=== PATIENT | female | born 1940 | race American Indian/Alaskan Native ===

== ENCOUNTER 2016-11-29 15:31 | Emergency (ER) | payer MEDICARE, OTHER ==
--- NOTE | 2016-11-29 16:10 | EDM.PDOC ---
ED HPI ENT - General Stated Complaint: [id number] SICK BAD COLD SENT FROM [facility] CT OF HEAD Time Seen by Provider: 11/29/16 15:58 Source of Information: Reports: Patient History Limitations: Reports: No limitations - History of Present Illness INITIAL COMMENTS - FREE TEXT/NARRATIVE: This 76 yo female patient was sent to the ED from [facility] due to pain behind her right ear, swelling in the same area and a history of a sinus infection not improving on Augmentin. The patient reports she started to have symptoms in October and has been seen in the [facility] 2 times ( including today). The patient has taken a full course of antibiotics. The patient returned to the [facility] today. No labs or x-rays were done, but the patient was sent to the emergency department for an assessment, lab and possibly a CT of her head. The patient reports she has been getting very tired at the end of the day and has had some intermittent dizziness. The patient report she is feeling a little better after the Augmentin, but not back to her normal. Timing/Duration: Reports: Week(s): (8), Constant Severity: moderate Location: Reports: right Ear Quality: Reports: Ache, Dull Improves with: Reports: None Worsens with: Reports: Other (palpation) Associated Symptoms: Reports: no other symptoms - Related Data Allergies/ADRs: Allergies Allergy/AdvReac Type Severity Reaction Status Date / Time Dairy Products Allergy Other Verified 11/29/16 15:46 pseudoephedrine Allergy Other Verified 11/29/16 15:46 Home Meds: Home Meds Aspirin [Halfprin] 81 mg PO DAILY 11/29/16 [History] Calcium Citrate/Vitamin D3 [Calcium Citrate + D] 1 tab PO BID 11/29/16 [History] Magnesium Oxide 1 tab PO DAILY 11/29/16 [History] Meclizine [Antivert] 1 tab PO TID 11/29/16 [History] Multivitamin [Multivitamins] 1 tab PO DAILY 11/29/16 [History] Ranitidine [Zantac] 1 tab PO BID 11/29/16 [History] amLODIPine [Norvasc] 5 mg PO DAILY 11/29/16 [History] Social & Family History - Tobacco Use Smoking Status *Q: Former Smoker Years of Tobacco use: 57 Packs/Tins Daily: 1 Used Tobacco, but Quit: Yes Month Tobacco Last Used: oct 2016 - Recreational Drug Use Recreational Drug Use: No ED ROS ENT - Review of Systems Review Of Systems: ROS reveals no pertinent complaints other than HPI. ED EXAM, ENT - Physical Exam Exam: See Below Exam Limited By: No limitations General Appearance: alert, WD/WN, mild distress Eye Exam: bilateral eye: EOMI, normal inspection, PERRL Ears: normal external exam, normal canal, hearing grossly normal, normal TMs Nose: normal inspection, normal mucousa, no blood Mouth/Throat: Normal inspection, Normal gums, Normal lips, Normal oropharynx, Normal teeth Head: scalp tenderness (behind right ear) Neck: normal inspection, supple, non-tender, full range of motion Respiratory/Chest: no respiratory distress, lungs clear, normal breath sounds, no accessory muscle use, chest non-tender Cardiovascular: normal peripheral pulses, regular rate, rhythm, no edema, no gallop, no JVD, no murmur, no rub GI/Abdominal: normal bowel sounds, soft, non tender, no organomegaly, no distention, no abnormal bruit, no mass (Female) Exam: Deferred Rectal (Female) Exam: Deferred Back: normal inspection, full range of motion Extremities: normal inspection, normal range of motion, non-tender, no pedal edema, normal capillary refill Neurological: alert, oriented, CN II-XII intact, normal cognition, normal gait, normal reflexes, no motor/sensory deficits Psychiatric: normal affect, normal mood Skin: Warm, Dry, Intact, Normal color, No rash Lymphatic: no adenopathy Course - Vital Signs Last Recorded V/S: Last Vital Signs Temp 35.8 C 11/29/16 15:45 Pulse 84 11/29/16 15:45 Resp 18 11/29/16 15:45 BP 136/75 11/29/16 15:45 Pulse Ox 94 L 11/29/16 15:45 - Orders/Labs/Meds Orders: Active Orders 24 hr Category Date Time Status CULTURE BLOOD [BC] Stat Lab 11/29/16 15:53 Received CULTURE BLOOD [BC] Stat Lab 11/29/16 15:55 Received Blood Culture x2 Reflex Set [OM.PC] Stat Oth 11/29/16 15:43 Ordered Labs: Laboratory Tests 11/29/16 11/29/16 11/29/16 Range/Units 15:53 15:55 15:55 WBC 7.7 (5.0-10.0) 10^3/uL RBC 4.13 L (4.2-5.4) 10^6/uL Hgb 12.0 (12.0-16.0) g/dL Hct 37.1 (37.0-47.0) % MCV 89.8 (80-100) fL MCH 29.1 (27.0-34.0) pg MCHC 32.3 L (33.0-35.0) g/dL Plt Count 289 (150-450) 10^3/uL Neut % (Auto) 73.3 (42.2-75.2) % Lymph % (Auto) 15.9 L (20.5-50.1) % [place] % (Auto) 10.1 H (2-8) % Eos % (Auto) 0.4 L (1.0-3.0) % Baso % (Auto) 0.3 (0.0-1.0) % Sodium 138 (135-145) mmol/L Potassium 3.7 (3.6-5.0) mmol/L Chloride 99 L (101-111) mmol/L Carbon Dioxide 28.0 (21.0-31.0) mmol/L Anion Gap 14.7 BUN 13 (7-18) mg/dL Creatinine 0.5 L (0.6-1.3) mg/dL Est Cr Clr Drug Dosing 70.60 mL/min Estimated GFR (MDRD) > 60 BUN/Creatinine Ratio 26.00 Glucose 99 (74-105) mg/dL Lactic Acid 0.9 (0.5-2.2) mmol/L Calcium 9.6 (8.4-10.2) mg/dl Total Bilirubin 0.5 (0.2-1.0) mg/dL AST 19 (10-42) IU/L ALT 12 (10-60) IU/L Alkaline Phosphatase 63 (42-121) IU/L Total Protein 8.0 (6.7-8.2) g/dl Albumin 3.9 (3.2-5.5) g/dl Globulin 4.1 Albumin/Globulin Ratio 0.95 Meds: Medications Discontinued Medications Generic Name Dose Route Start Last Admin Trade Name Freq PRN Reason Stop Dose Admin Iopamidol 75 ml 11/29/16 16:33 11/29/16 17:02 Isovue-300 (61%) IVPUSH 11/29/16 16:34 75 ml ONETIME ONE Administration - Re-Assessments/Exams Free Text/Narrative Re-Assessment/Exam: 11/29/16 18:08 Discussed the examination, history, prior treatments, lab and CT results with Dr. Castillo (Neurosurgery). Dr. Castillo advised to schedule an MRI with and without contrast for the patient in the morning and he will see the patient in the afternoon tomorrow afternoon. Departure - Departure Time of Disposition: 18:27 Disposition: Home, Self-Care 01 Condition: fair Clinical Impression: Brain mass Care Plan Goals: The patient and family were advised of the examination, lab, CT and consult results during the visit. The patient was scheduled to have an MRI with and without contrast here at [facility] tomorrow morning at 0800. The patient was advised to avoid eating or drinking for 4 hours prior to her appointment. After the MRI has been completed, the MRI will be sent electronically to Dr. Castillo. The patient will then travel to [facility] for an appointment with Dr. Castillo (Neurosurgery) in the afternoon for continued evaluation and further treatment. If the patient has any additional symptoms or concerns, the patient should return to the emergency department. - My Orders Last 24 Hours: My Active Orders 11/29/16 15:43 Blood Culture x2 Reflex Set [OM.PC] Stat 11/29/16 15:53 CULTURE BLOOD [BC] Stat 11/29/16 15:55 CULTURE BLOOD [BC] Stat - Assessment/Plan Last 24 Hours: My Active Orders 11/29/16 15:43 Blood Culture x2 Reflex Set [OM.PC] Stat 11/29/16 15:53 CULTURE BLOOD [BC] Stat 11/29/16 15:55 CULTURE BLOOD [BC] Stat
[2016-11-29 16:14] VITALS: BP 136/75
[2016-11-29 16:23] LABS: CHLORIDE,CL 99 mmol/L (101-111); SODIUM,NA 138 mmol/L (135-145)
[2016-11-29] MEDS ORDERED: Iopamidol 612 MG/ML 75 ML Bottle IVPUSH ONE (16:33)
--- NOTE | 2016-11-29 17:49 | CT ---
Clinical history: 76-year-old afebrile female recently finished course of Augmentin for "sinusitis" complaining of dizzy spells and "lump" behind the right ear. Normal white blood cell count. Scan technique: Volume acquisition of data facial scan including salivary glands and paranasal/masto id sinuses obtained during intravenous administration 75 cc nonionic Isovue contrast with patient ly ing supine on the Siemens multi slice CT scanner [place], [place]. Al l data archived in the PAC system for storage, reformatting and study. (Delayed CT images of the hea d) Interpretation: Abnormal. 1. *Large, 4 cm diameter, mixed density vascular mass lesion in the posterior fossa.... cerebellum, left of midline. No ventricular dilatation or hydrocephalus. 2. 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 3. Mucoperiosteal inflammatory changes maxillary sinuses (large retention cysts on the right). 4. No soft tissue "lump" or mass behind the ears. 5. Relatively larger parotid gland on the right but no sign of sialolith, parotid duct dilatation, o r abnormal vascular enhancement i.e. no indication parotid gland tumor or parotiditis. 6. No foreign body. Normal submandibular glands. 7. Scattered intracranial microvascular ischemic changes of the white matter both cerebral hemispher es. No supratentorial mass lesion. No sign of acute intracranial hemorrhage. CONCLUSION: Large posterior fossa mass lesion (medulloblastoma?). Maxillary sinusitis.
--- NOTE | 2016-11-29 17:50 | CT ---
Clinical history: 76-year-old female complaining of dizziness. CONCLUSION: Abnormal large posterior fossa mass lesion (see report facial CT scan, today).
== END 2016-11-29 18:50 | disposition home or self-care (01) ==
LOC: DL.ED 15:31
DX: G93.89 Other specified disorders of brain (principal); Z88.8 Allergy status to other drugs, medicaments and biological substances; Z87.891 Personal history of nicotine dependence
CPT/HCPCS: 36415; 70450; 70487; 80053; 83605; 85025; 87040; 99284; Q9967

== ENCOUNTER 2017-04-26 14:56 | Emergency (ER) | payer MEDICARE, OTHER ==
[2017-04-26] MEDS ORDERED: Albuterol/Ipratropium 3.0-0.5 MG/3 ML Neb Soln NEB ONE (15:20)
--- NOTE | 2017-04-26 15:27 | EDM.PDOC ---
ED HPI GENERAL MEDICAL PROBLEM - General Chief Complaint: Respiratory Problem Stated Complaint: BINH [id number] Time Seen by Provider: 04/26/17 15:15 Source of Information: Reports: Patient History Limitations: Reports: No Limitations - History of Present Illness INITIAL COMMENTS - FREE TEXT/NARRATIVE: This 77 yo female patient reports to the ED from the [facility] with increased shortness of breath over the past 2 days. The patient reports she was at the clinic today getting a chemo treatment (for a tumor in the back of her head) when the nursing staff noticed that she was having increased shortness of breath. The patient reports she was doing very well until yesterday, when she started to have increased shortness of breath. The patient reports she has noticed difficulties getting air into her chest. The patient also reports a non- productive cough. The patient reports she had smoked for years, but quit this year. The patient reports no history of CHF, bronchitis or COPD. Onset: Sudden Onset Date: 04/25/17 Duration: Constant, Getting Worse Location: Reports: Chest Quality: Reports: Pressure Severity: Moderate Improves with: Reports: None Worsens with: Reports: None Context: Reports: Other Associated Symptoms: Reports: Cough, Shortness of Breath - Related Data Allergies Allergy/AdvReac Type Severity Reaction Status Date / Time Dairy Products Allergy Other Verified 04/26/17 14:59 pseudoephedrine Allergy Other Verified 04/26/17 14:59 Home Meds: Home Meds Calcium Citrate/Vitamin D3 [Calcium Citrate + D] 1 tab PO BID 11/29/16 [History] Magnesium Oxide 1 tab PO DAILY 11/29/16 [History] Multivitamin [Multivitamins] 1 tab PO DAILY 11/29/16 [History] Ranitidine [Zantac] 1 tab PO BID 11/29/16 [History] amLODIPine [Norvasc] 5 mg PO DAILY 11/29/16 [History] Aspirin 81 mg PO BRK 04/26/17 [History] Loratadine 10 mg PO PRN 04/26/17 [History] Ondansetron [Zofran Odt] 8 mg PO Q8HR PRN 04/26/17 [History] Past Medical History HEENT History: Reports: Cataract Cardiovascular History: Reports: Hypertension Respiratory History: Reports: Other (See Below) Other Respiratory History: 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 Gastrointestinal History: Reports: GERD, Other (See Below) Other Gastrointestinal History: Lactose intolerance Genitourinary History: Reports: None [employer] History: Reports: Other (See Below) Other OB/BYN History: Tubal ligation at age 52 Musculoskeletal History: Reports: None Neurological History: Reports: None Psychiatric History: Reports: None Endocrine/Metabolic History: Reports: None Hematologic History: Reports: Anemia Immunologic History: Reports: None Oncologic (Cancer) History: Reports: Brain, Lung, Other (See Below) Other Oncologic History: Pt currently on Chemo Dermatologic History: Reports: None - Infectious Disease History Infectious Disease History: Reports: Chicken Pox, Measles, Mumps - Past Surgical History Cardiovascular Surgical History: Reports: None Respiratory Surgical History: Reports: None Female Surgical History: Reports: None Musculoskeletal Surgical History: Reports: None Social & Family History - Family History Family Medical History: Noncontributory HEENT: Reports: Glaucoma Cardiac: Reports: Heart Failure Endocrine/Metabolic: Reports: Diabetes, type II Immunologic: Reports: None Oncologic: Reports: Breast, Uterine - Tobacco Use Smoking Status *Q: Former Smoker Years of Tobacco use: 58 Packs/Tins Daily: 0.2 Used Tobacco, but Quit: Yes Month Tobacco Last Used: ? Second Hand Smoke Exposure: Yes - Caffeine Use Caffeine Use: Reports: Coffee - Recreational Drug Use Recreational Drug Use: No ED ROS GENERAL - Review of Systems Review Of Systems: ROS reveals no pertinent complaints other than HPI. ED EXAM, GENERAL - Physical Exam Exam: See Below Exam Limited By: No Limitations General Appearance: Alert, WD/WN, No Apparent Distress Eye Exam: Bilateral Eye: EOMI, Normal Inspection, PERRL Ears: Normal External Exam, Normal Canal, Hearing Grossly Normal, Normal TMs Nose: Normal Inspection, Normal Mucosa, No Blood Throat/Mouth: Normal Inspection, Normal Lips, Normal Teeth, Normal Gums, Normal Oropharynx, Normal Voice, No Airway Compromise Head: Atraumatic, Normocephalic Neck: Normal Inspection, Supple, Non-Tender, Full Range of Motion Respiratory/Chest: Decreased Breath Sounds, Rhonchi, Wheezing Cardiovascular: Normal Peripheral Pulses, No Edema, No Gallop, No JVD, No Murmur , No Rub, Tachycardia, Extra Beats GI/Abdominal: Normal Bowel Sounds, Soft, Non-Tender, No Organomegaly, No Distention, No Abnormal Bruit, No Mass (Female) Exam: Deferred Rectal (Female) Exam: Deferred Extremities: Normal Inspection, Normal Range of Motion, Non-Tender, Normal Capillary Refill, No Pedal Edema Neurological: Alert, Oriented, CN II-XII Intact, Normal Cognition, Normal Gait, Normal Reflexes, No Motor/Sensory Deficits Psychiatric: Normal Affect, Normal Mood Skin Exam: Warm, Dry, Intact, Normal Color, No Rash Lymphatic: No Adenopathy Course - Vital Signs Last Recorded V/S: Last Vital Signs Temp 36.0 C 04/26/17 16:18 Pulse 96 04/26/17 16:18 Resp 22 H 04/26/17 16:18 BP 123/70 04/26/17 16:18 Pulse Ox 88 L 04/26/17 15:14 - Orders/Labs/Meds Orders: Active Orders 24 hr Category Date Time Status EKG Documentation Completion [RC] URGENT Care 04/26/17 15:15 Active RT Aerosol Therapy [RC] ASDIRECTED Care 04/26/17 15:20 Active Chest 2V [CR] Urgent Exams 04/26/17 15:15 Taken CULTURE BLOOD [BC] Stat Lab 04/26/17 14:27 Received CULTURE BLOOD [BC] Stat Lab 04/26/17 15:31 Received Piperacillin/Tazobactam [Zosyn] 3.375 gm Med 04/26/17 16:17 Ordered Sodium Chloride 0.9% [Normal Saline] 100 ml IV ONETIME Blood Culture x2 Reflex Set [OM.PC] Stat Oth 04/26/17 15:15 Ordered Medication Orders Piperacillin Sod/Tazobactam (Sod 3.375 gm/ Sodium Chloride) 100 mls @ 200 mls/ hr IV ONETIME ONE Stop: 04/26/17 16:46 Labs: Laboratory Tests 04/26/17 04/26/17 04/26/17 Range/Units 14:27 14:27 14:27 WBC 15.1 H (5.0-10.0) 10^3/uL RBC 2.99 L (4.2-5.4) 10^6/uL Hgb 9.4 L (12.0-16.0) g/dL Hct 29.3 L (37.0-47.0) % MCV 98.0 (80-100) fL MCH 31.4 (27.0-34.0) pg MCHC 32.1 L (33.0-35.0) g/dL Plt Count 182 (150-450) 10^3/uL Neut % (Auto) 94.7 H (42.2-75.2) % Lymph % (Auto) 2.8 L (20.5-50.1) % [place] % (Auto) 2.3 (2-8) % Eos % (Auto) 0.1 L (1.0-3.0) % Baso % (Auto) 0.1 (0.0-1.0) % Sodium (135-145) mmol/L Potassium (3.6-5.0) mmol/L Chloride (101-111) mmol/L Carbon Dioxide (21.0-31.0) mmol/L Anion Gap BUN (7-18) mg/dL Creatinine (0.6-1.3) mg/dL Est Cr Clr Drug Dosing mL/min Estimated GFR (MDRD) BUN/Creatinine Ratio Glucose (74-105) mg/dL Lactic Acid 1.0 (0.5-2.2) mmol/L Calcium (8.4-10.2) mg/dl Total Bilirubin (0.2-1.0) mg/dL AST (10-42) IU/L ALT (10-60) IU/L Alkaline Phosphatase (42-121) IU/L Troponin I (0.00-0.02) ng/ml B-Natriuretic Peptide 1070 H (0-100) pg/ml Total Protein (6.7-8.2) g/dl Albumin (3.2-5.5) g/dl Globulin Albumin/Globulin Ratio Urine Color (YELLOW) Urine Appearance (CLEAR) Urine pH (5.0-9.0) Ur Specific [place] (1.005-1.030) Urine Protein (NEGATIVE) Urine Glucose (UA) (NEGATIVE) Urine Ketones (NEGATIVE) Urine Occult Blood (NEGATIVE) Urine Nitrite (NEGATIVE) Urine Bilirubin (NEGATIVE) Urine Urobilinogen (0.2-1.0) mg/dL Ur Leukocyte Esterase (NEGATIVE) Urine RBC /HPF Urine WBC (0-5/HPF) /HPF Ur Epithelial Cells /HPF Urine Bacteria (0-FEW/HPF) /HPF Urine Mucus /LPF 04/26/17 04/26/17 Range/Units 14:27 15:30 WBC (5.0-10.0) 10^3/uL RBC (4.2-5.4) 10^6/uL Hgb (12.0-16.0) g/dL Hct (37.0-47.0) % MCV (80-100) fL MCH (27.0-34.0) pg MCHC (33.0-35.0) g/dL Plt Count (150-450) 10^3/uL Neut % (Auto) (42.2-75.2) % Lymph % (Auto) (20.5-50.1) % [place] % (Auto) (2-8) % Eos % (Auto) (1.0-3.0) % Baso % (Auto) (0.0-1.0) % Sodium 140 (135-145) mmol/L Potassium 3.3 L (3.6-5.0) mmol/L Chloride 108 (101-111) mmol/L Carbon Dioxide 21.0 (21.0-31.0) mmol/L Anion Gap 14.3 BUN 19 H (7-18) mg/dL Creatinine 0.5 L (0.6-1.3) mg/dL Est Cr Clr Drug Dosing 71.10 mL/min Estimated GFR (MDRD) > 60 BUN/Creatinine Ratio 38.00 Glucose 142 H (74-105) mg/dL Lactic Acid (0.5-2.2) mmol/L Calcium 8.7 (8.4-10.2) mg/dl Total Bilirubin 0.7 (0.2-1.0) mg/dL AST 45 H (10-42) IU/L ALT 48 (10-60) IU/L Alkaline Phosphatase 58 (42-121) IU/L Troponin I 0.14 H* (0.00-0.02) ng/ml B-Natriuretic Peptide (0-100) pg/ml Total Protein 6.7 (6.7-8.2) g/dl Albumin 3.9 (3.2-5.5) g/dl Globulin 2.8 Albumin/Globulin Ratio 1.39 Urine Color Yellow (YELLOW) Urine Appearance Slightly cloudy (CLEAR) Urine pH 6.0 (5.0-9.0) Ur Specific [place] 1.015 (1.005-1.030) Urine Protein 30 H (NEGATIVE) Urine Glucose (UA) Negative (NEGATIVE) Urine Ketones Negative (NEGATIVE) Urine Occult Blood Moderate H (NEGATIVE) Urine Nitrite Negative (NEGATIVE) Urine Bilirubin Negative (NEGATIVE) Urine Urobilinogen 0.2 (0.2-1.0) mg/dL Ur Leukocyte Esterase Moderate H (NEGATIVE) Urine RBC 10-20 H /HPF Urine WBC 20-30 H (0-5/HPF) /HPF Ur Epithelial Cells Few /HPF Urine Bacteria Few (0-FEW/HPF) /HPF Urine Mucus Few H /LPF Meds: Medications Generic Name Dose Route Start Last Admin Trade Name Freq PRN Reason Stop Dose Admin Piperacillin Sod/Tazobactam 100 mls @ 200 mls/hr 04/26/17 16:17 Sod 3.375 gm/ Sodium Chloride IV 04/26/17 16:46 ONETIME ONE Discontinued Medications Generic Name Dose Route Start Last Admin Trade Name Freq PRN Reason Stop Dose Admin Albuterol/Ipratropium 3 ml 04/26/17 15:20 04/26/17 15:27 Duoneb 3.0-0.5 Mg/3 Ml NEB 04/26/17 15:21 3 ml ONETIME ONE Administration Aspirin 324 mg 04/26/17 16:06 04/26/17 16:11 Aspirin PO 04/26/17 16:07 324 mg ONETIME ONE Administration Departure - Departure Time of Disposition: 16:24 Disposition: DC/Tfer to Acute Hospital 02 Condition: Serious Clinical Impression: Bronchitis, Elevated troponin I level CHF (congestive heart failure) Qualifiers: Congestive heart failure type: unspecified congestive heart failure type Congestive heart failure chronicity: acute Qualified Code(s): I50.9 - Heart failure, unspecified - Discharge Information Forms: Interfacility Transfer EMTALA Care Plan Goals: Discussed the history, examination, lab, x-ray, and EKG results with Dr. Almaraz ( Hospitalist with in [place]). Dr. Almaraz accepted the patient for continued evaluation and further management. The patient will be transported by [facility]. - My Orders Last 24 Hours: My Active Orders 04/26/17 14:27 CULTURE BLOOD [BC] Stat 04/26/17 15:15 EKG Documentation Completion [RC] URGENT Chest 2V [CR] Urgent Blood Culture x2 Reflex Set [OM.PC] Stat 04/26/17 15:20 RT Aerosol Therapy [RC] ASDIRECTED 04/26/17 15:31 CULTURE BLOOD [BC] Stat 04/26/17 16:17 Piperacillin/Tazobactam [Zosyn] 3.375 gm Sodium Chloride 0.9% [Normal Saline] 100 ml IV ONETIME - Assessment/Plan Last 24 Hours: My Active Orders 04/26/17 14:27 CULTURE BLOOD [BC] Stat 04/26/17 15:15 EKG Documentation Completion [RC] URGENT Chest 2V [CR] Urgent Blood Culture x2 Reflex Set [OM.PC] Stat 04/26/17 15:20 RT Aerosol Therapy [RC] ASDIRECTED 04/26/17 15:31 CULTURE BLOOD [BC] Stat 04/26/17 16:17 Piperacillin/Tazobactam [Zosyn] 3.375 gm Sodium Chloride 0.9% [Normal Saline] 100 ml IV ONETIME
[2017-04-26 15:56] LABS: CHLORIDE,CL 108 mmol/L (101-111); SODIUM,NA 140 mmol/L (135-145)
[2017-04-26] MEDS ORDERED: Aspirin 81 MG Tab.Chew PO ONE (16:06)
[2017-04-26] MEDS ORDERED: Piperacillin/Tazobactam 3.375 GM in Sodium Chloride 0.9% 100 ML IV ONE (16:17)
[2017-04-26 16:19] VITALS: BP 123/70
--- NOTE | 2017-04-27 12:57 | EKG ---
04/26/2017- MELVI GORDON - EKG done on a 77-year-old female showing sinus tachycardia with heart rate of 101 beats per minute, left bundle-branch block. No previous EKG to compare. [facility] /[id number]
== END 2017-04-26 16:46 ==
LOC: DL.ED 14:56
DX: I11.0 Hypertensive heart disease with heart failure (principal); I50.9 Heart failure, unspecified; J40 Bronchitis, not specified as acute or chronic; R79.89 Other specified abnormal findings of blood chemistry; K21.9 Gastro-esophageal reflux disease without esophagitis; Z91.011 Allergy to milk products; Z88.8 Allergy status to other drugs, medicaments and biological substances; Z79.899 Other long term (current) drug therapy; Z98.51 Tubal ligation status; Z87.891 Personal history of nicotine dependence
CPT/HCPCS: 36415; 71020; 80053; 81001; 83605; 83880; 84484; 85025; 87040; 93005; 94640; 96365; 99285; A9270; J2543; J7050

== ENCOUNTER 2017-07-11 19:05 | Inpatient (IN) | payer MEDICARE, OTHER ==
[2017-07-11] MEDS ORDERED: Sodium Chloride 0.9% 1,000 ML IV ONE (19:21)
--- NOTE | 2017-07-11 19:25 | EDM.PDOC ---
ED HPI GENERAL MEDICAL PROBLEM - General Chief Complaint: General Stated Complaint: BY AMBULANCE Time Seen by Provider: 07/11/17 19:08 Source of Information: Reports: Patient, EMS, EMS Notes Reviewed History Limitations: Reports: No Limitations - History of Present Illness INITIAL COMMENTS - FREE TEXT/NARRATIVE: 77 yo [place] Female c/o blood per rectum w/ SOB brought in by ambulance. Pt. state recent abdomen radiation on Sunday Onset: Today Onset Date: 07/11/17 Onset Time: 17:00 Duration: Hour(s): Location: Reports: Chest, Pelvis, Generalized Severity: Moderate Improves with: Reports: None Worsens with: Reports: None Context: Reports: Other (P<Hx. Lung cancer w/ Mets and S/P Radiation) Associated Symptoms: Reports: Loss of Appetite, Shortness of Breath Right Arm Pain Score (Numeric/FACES): 3 Lower Abdomen Pain Score (Numeric/FACES): 4 - Related Data Allergies Allergy/AdvReac Type Severity Reaction Status Date / Time Dairy Products Allergy Other Verified 07/11/17 19:18 pseudoephedrine Allergy Other Verified 07/11/17 19:18 Home Meds: Home Meds Calcium Citrate/Vitamin D3 [Calcium Citrate + D] 1 tab PO BID 11/29/16 [History] Magnesium Oxide 1 tab PO DAILY 11/29/16 [History] Multivitamin [Multivitamins] 1 tab PO DAILY 11/29/16 [History] Ranitidine [Zantac] 1 tab PO BID 11/29/16 [History] amLODIPine [Norvasc] 5 mg PO DAILY 11/29/16 [History] Aspirin 81 mg PO BRK 04/26/17 [History] Loratadine 10 mg PO PRN 04/26/17 [History] Ondansetron [Zofran Odt] 8 mg PO Q8HR PRN 04/26/17 [History] Past Medical History HEENT History: Reports: Cataract Cardiovascular History: Reports: Hypertension Respiratory History: Reports: Other (See Below) Other Respiratory History: 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 Gastrointestinal History: Reports: GERD, Other (See Below) Other Gastrointestinal History: Lactose intolerance Genitourinary History: Reports: None MEDICAL OFFICE SPECIALIST History: Reports: Other (See Below) Other OB/BYN History: Tubal ligation at age 52 Musculoskeletal History: Reports: None Neurological History: Reports: None Psychiatric History: Reports: None Endocrine/Metabolic History: Reports: None Hematologic History: Reports: Anemia Immunologic History: Reports: None Oncologic (Cancer) History: Reports: Brain, Lung, Other (See Below) Other Oncologic History: Pt currently on Chemo Dermatologic History: Reports: None - Infectious Disease History Infectious Disease History: Reports: Chicken Pox, Measles, Mumps - Past Surgical History Cardiovascular Surgical History: Reports: None Respiratory Surgical History: Reports: None Female Surgical History: Reports: None Musculoskeletal Surgical History: Reports: None Social & Family History - Family History Family Medical History: Noncontributory HEENT: Reports: Glaucoma Cardiac: Reports: Heart Failure Endocrine/Metabolic: Reports: Diabetes, type II Immunologic: Reports: None Oncologic: Reports: Breast, Uterine - Tobacco Use Smoking Status *Q: Former Smoker Years of Tobacco use: 58 Packs/Tins Daily: 0.2 Used Tobacco, but Quit: Yes Month Tobacco Last Used: ? Second Hand Smoke Exposure: Yes - Caffeine Use Caffeine Use: Reports: Coffee - Recreational Drug Use Recreational Drug Use: No ED ROS GENERAL - Review of Systems Review Of Systems: See Below Constitutional: Reports: Malaise, Weakness, Decreased Appetite, Weight Loss HEENT: Reports: No Symptoms Respiratory: Reports: Shortness of Breath Cardiovascular: Reports: No Symptoms Endocrine: Reports: No Symptoms GI/Abdominal: Reports: Abdominal Pain, Bloody Stool, Melena : Reports: No Symptoms Musculoskeletal: Reports: No Symptoms Skin: Reports: No Symptoms Neurological: Reports: Weakness Psychiatric: Reports: No Symptoms Hematologic/Lymphatic: Reports: No Symptoms Immunologic: Reports: No Symptoms ED EXAM, GENERAL - Physical Exam Exam: See Below Exam Limited By: No Limitations General Appearance: Alert, No Apparent Distress, Lethargic Eye Exam: Bilateral Eye: EOMI, PERRL Ears: Normal External Exam Nose: Normal Inspection Throat/Mouth: Normal Inspection Head: Atraumatic, Normocephalic Neck: Normal Inspection Respiratory/Chest: No Respiratory Distress, Lungs Clear, Normal Breath Sounds, No Accessory Muscle Use Cardiovascular: Normal Peripheral Pulses, Regular Rate, Rhythm Peripheral Pulses: 2+: Radial (L), Radial (R) GI/Abdominal: Soft, Tender, Abnormal Bowel Sounds (decreased) Back Exam: Normal Inspection Extremities: Normal Inspection, Normal Range of Motion, Non-Tender Neurological: Alert, Oriented, CN II-XII Intact, Normal Cognition Psychiatric: Normal Affect, Normal Mood Skin Exam: Warm, Dry, Intact Lymphatic: No Adenopathy Course - Vital Signs Last Recorded V/S: Last Vital Signs Temp 36.3 C 07/11/17 19:34 Pulse 70 07/11/17 20:07 Resp 18 07/11/17 20:07 BP 70/22 L 07/11/17 20:07 Pulse Ox 100 07/11/17 20:07 - Orders/Labs/Meds Orders: Active Orders 24 hr Category Date Time Status Insert Urinary Catheter [OM.PC] Q24H Care 07/11/17 19:30 Ordered Urinary Catheter Assessment [RC] ASDIRECTED Care 07/11/17 19:24 Active Chest 1V Frontal [CR] Urgent Exams 07/11/17 19:22 Taken CULTURE BLOOD [BC] Stat Lab 07/11/17 19:10 Results CULTURE BLOOD [BC] Stat Lab 07/11/17 19:15 Received CULTURE URINE [RM] Stat Lab 07/11/17 19:32 Received Hemoccult, Stool [OCCULT BLOOD DIAGNOSTIC] [OP] Stat Lab 07/11/17 20:25 Uncollected IRON & TIBC [REF] Stat Lab 07/11/17 19:15 Received TYPE AND SCREEN [BBK] Stat Lab 07/11/17 19:15 Received Sodium Chloride 0.9% [Normal Saline] 500 ml Med 07/11/17 19:30 Active IV .BOLUS Sodium Chloride 0.9% [Normal Saline] 500 ml Med 07/11/17 20:15 Active IV .BOLUS Medication Orders Sodium Chloride (Normal Saline) 500 mls @ 999 mls/hr IV .BOLUS KIERAN Last Admin: 07/11/17 19:20 Dose: 999 mls/hr Sodium Chloride (Normal Saline) 500 mls @ 999 mls/hr IV .BOLUS KIERAN Labs: Laboratory Tests 07/11/17 07/11/17 07/11/17 Range/Units 19:15 19:15 19:15 WBC 7.9 (5.0-10.0) 10^3/uL RBC 2.96 L (4.2-5.4) 10^6/uL Hgb 9.5 L (12.0-16.0) g/dL Hct 29.2 L (37.0-47.0) % MCV 98.6 (80-100) fL MCH 32.1 (27.0-34.0) pg MCHC 32.5 L (33.0-35.0) g/dL Plt Count 170 (150-450) 10^3/uL Neut % (Auto) 86.4 H (42.2-75.2) % Lymph % (Auto) 7.2 L (20.5-50.1) % [place] % (Auto) 4.9 (2-8) % Eos % (Auto) 1.1 (1.0-3.0) % Baso % (Auto) 0.4 (0.0-1.0) % Percent Retic 1 (0.5-1.5) % PT 10.7 (9.0-12.0) SEC INR 1.1 (0.9-1.2) APTT < 21.0 L (22.0-34.0) SEC Sodium 137 (135-145) mmol/L Potassium 3.9 (3.6-5.0) mmol/L Chloride 100 L (101-111) mmol/L Carbon Dioxide 22.0 (21.0-31.0) mmol/L Anion Gap 18.9 BUN 47 H D (7-18) mg/dL Creatinine 2.8 H D (0.6-1.3) mg/dL Est Cr Clr Drug Dosing 12.53 mL/min Estimated GFR (MDRD) 16 BUN/Creatinine Ratio 16.78 Glucose 246 H (74-105) mg/dL Lactic Acid (0.5-2.2) mmol/L Calcium 9.8 (8.4-10.2) mg/dl Total Bilirubin 0.7 (0.2-1.0) mg/dL AST 23 (10-42) IU/L ALT 12 (10-60) IU/L Alkaline Phosphatase 53 (42-121) IU/L Troponin I (0.00-0.02) ng/ml Total Protein 6.9 (6.7-8.2) g/dl Albumin 4.4 (3.2-5.5) g/dl Globulin 2.5 Albumin/Globulin Ratio 1.76 Urine Color (YELLOW) Urine Appearance (CLEAR) Urine pH (5.0-9.0) Ur Specific [place] (1.005-1.030) Urine Protein (NEGATIVE) Urine Glucose (UA) (NEGATIVE) Urine Ketones (NEGATIVE) Urine Occult Blood (NEGATIVE) Urine Nitrite (NEGATIVE) Urine Bilirubin (NEGATIVE) Urine Urobilinogen (0.2-1.0) mg/dL Ur Leukocyte Esterase (NEGATIVE) Urine RBC /HPF Urine WBC (0-5/HPF) /HPF Ur Epithelial Cells /HPF Urine Bacteria (0-FEW/HPF) /HPF 07/11/17 07/11/17 07/11/17 Range/Units 19:15 19:15 19:32 WBC (5.0-10.0) 10^3/uL RBC (4.2-5.4) 10^6/uL Hgb (12.0-16.0) g/dL Hct (37.0-47.0) % MCV (80-100) fL MCH (27.0-34.0) pg MCHC (33.0-35.0) g/dL Plt Count (150-450) 10^3/uL Neut % (Auto) (42.2-75.2) % Lymph % (Auto) (20.5-50.1) % [place] % (Auto) (2-8) % Eos % (Auto) (1.0-3.0) % Baso % (Auto) (0.0-1.0) % Percent Retic (0.5-1.5) % PT (9.0-12.0) SEC INR (0.9-1.2) APTT (22.0-34.0) SEC Sodium (135-145) mmol/L Potassium (3.6-5.0) mmol/L Chloride (101-111) mmol/L Carbon Dioxide (21.0-31.0) mmol/L Anion Gap BUN (7-18) mg/dL Creatinine (0.6-1.3) mg/dL Est Cr Clr Drug Dosing mL/min Estimated GFR (MDRD) BUN/Creatinine Ratio Glucose (74-105) mg/dL Lactic Acid 2.1 (0.5-2.2) mmol/L Calcium (8.4-10.2) mg/dl Total Bilirubin (0.2-1.0) mg/dL AST (10-42) IU/L ALT (10-60) IU/L Alkaline Phosphatase (42-121) IU/L Troponin I 0.04 H* (0.00-0.02) ng/ml Total Protein (6.7-8.2) g/dl Albumin (3.2-5.5) g/dl Globulin Albumin/Globulin Ratio Urine Color Yellow (YELLOW) Urine Appearance Clear (CLEAR) Urine pH 5.5 (5.0-9.0) Ur Specific [place] 1.010 (1.005-1.030) Urine Protein Negative (NEGATIVE) Urine Glucose (UA) Negative (NEGATIVE) Urine Ketones Negative (NEGATIVE) Urine Occult Blood Negative (NEGATIVE) Urine Nitrite Negative (NEGATIVE) Urine Bilirubin Negative (NEGATIVE) Urine Urobilinogen 0.2 (0.2-1.0) mg/dL Ur Leukocyte Esterase Negative (NEGATIVE) Urine RBC 0-5 /HPF Urine WBC 0-5 (0-5/HPF) /HPF Ur Epithelial Cells Occasional /HPF Urine Bacteria Few (0-FEW/HPF) /HPF Meds: Medications Generic Name Dose Route Start Last Admin Trade Name Freq PRN Reason Stop Dose Admin Sodium Chloride 500 mls @ 999 mls/hr 07/11/17 19:30 07/11/17 19:20 Normal Saline IV 999 mls/hr .BOLUS KIERAN Administration Sodium Chloride 500 mls @ 999 mls/hr 07/11/17 20:15 Normal Saline IV .BOLUS KIERAN Discontinued Medications Generic Name Dose Route Start Last Admin Trade Name Freq PRN Reason Stop Dose Admin Sodium Chloride 1,000 mls @ 999 mls/hr 07/11/17 19:21 07/11/17 19:20 Normal Saline IV 07/11/17 20:21 999 mls/hr .BOLUS ONE Administration Departure - Departure Time of Disposition: 20:41 Disposition: Admitted As Inpatient 66 Condition: Fair Clinical Impression: Dehydration due to radiation Hypotension Qualifiers: Hypotension type: unspecified hypotension type Qualified Code(s): I95.9 - Hypotension, unspecified - Discharge Information Referrals: Anderson Correia MD [Physician] - Forms: ED Department Discharge - My Orders Last 24 Hours: My Active Orders 07/11/17 19:10 CULTURE BLOOD [BC] Stat 07/11/17 19:15 CULTURE BLOOD [BC] Stat IRON & TIBC [REF] Stat TYPE AND SCREEN [BBK] Stat 07/11/17 19:22 Chest 1V Frontal [CR] Urgent 07/11/17 19:24 Urinary Catheter Assessment [RC] ASDIRECTED 07/11/17 19:30 Insert Urinary Catheter [OM.PC] Q24H Sodium Chloride 0.9% [Normal Saline] 500 ml IV .BOLUS 07/11/17 19:32 CULTURE URINE [RM] Stat 07/11/17 20:15 Sodium Chloride 0.9% [Normal Saline] 500 ml IV .BOLUS 07/11/17 20:25 Hemoccult, Stool [OCCULT BLOOD DIAGNOSTIC] [OP] Stat - Assessment/Plan Last 24 Hours: My Active Orders 07/11/17 19:10 CULTURE BLOOD [BC] Stat 07/11/17 19:15 CULTURE BLOOD [BC] Stat IRON & TIBC [REF] Stat TYPE AND SCREEN [BBK] Stat 07/11/17 19:22 Chest 1V Frontal [CR] Urgent 07/11/17 19:24 Urinary Catheter Assessment [RC] ASDIRECTED 07/11/17 19:30 Insert Urinary Catheter [OM.PC] Q24H Sodium Chloride 0.9% [Normal Saline] 500 ml IV .BOLUS 07/11/17 19:32 CULTURE URINE [RM] Stat 07/11/17 20:15 Sodium Chloride 0.9% [Normal Saline] 500 ml IV .BOLUS 07/11/17 20:25 Hemoccult, Stool [OCCULT BLOOD DIAGNOSTIC] [OP] Stat
[2017-07-11] MEDS ORDERED: Sodium Chloride 0.9% 500 ML IV SCH ×2 (19:30→20:15)
[2017-07-11] MEDS ORDERED: Ondansetron 4 MG/2 ML SDV IVPUSH PRN (21:16)
[2017-07-11] MEDS ORDERED: Acetaminophen 325 MG Tab PO PRN (21:16)
[2017-07-11] MEDS ORDERED: Loratadine 10 MG Tab PO PRN (21:18)
[2017-07-11] MEDS ORDERED: Ondansetron 4 MG Tab.DIS PO PRN (21:30)
[2017-07-11] MEDS ORDERED: Sodium Chloride 0.9% 1,000 ML IV SCH (21:30)
[2017-07-11] MEDS: Heparin Sodium 5,000 Units/ML Vial SUBCUT SCH (21:52)
--- NOTE | 2017-07-12 00:20 | HP ---
CHIEF COMPLAINT: Increasing weakness, tiredness, and lightheadedness. HISTORY OF PRESENT ILLNESS: Mrs. Nae Vallejo is a 77-year-old female with a medical history significant for tobacco use in the past, quit smoking since October of this year. 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 The patient also received a whole brain radiation therapy. The patient had recent diagnosis of acute congestive heart failure with systolic dysfunction. On her previous echocardiogram, she was noted to have decreased ejection fraction of 25%. The patient was evaluated by Cardiology Services. She also underwent coronary angiogram which did not show any obstructive coronary artery disease. She was noted to have nonischemic cardiomyopathy possibly secondary to chemotherapy and is on LifeVest, presented to the ER today with complaints of increasing weakness and tiredness. At this time, the patient claims that she was apparently normal at her baseline function till this morning. This afternoon, she felt very weak and tired. She graded the weakness as 8/10 in intensity, which got aggravated on ambulation, relieved with rest, not associated with any chest pain. Denies any shortness of breath. Denies any fevers or chills in the last few days. Has intermittent episodes of cough which has been chronic in nature. She also has intermittent episodes of abdominal pain which has been chronic in nature. She has been dealing with alternative diarrhea every other day with loose stools, and she had 2 episodes of loose stools today. She denies any nausea or vomiting. She denied any hematemesis, hematochezia, or melanotic stools except for seeing some streaks of blood from her hemorrhoids. She denies any chest pains. No shortness of breath at this time. The patient denied any history of chest pains on exertion, but has mild dyspnea on exertion. No history of orthopnea or paroxysmal nocturnal dyspnea. The patient denied any history of hematemesis, hematochezia, or melanotic stools in the past. Normal bowel and bladder habits except for this last few days, where she was having some loose watery stools on alternate days. REVIEW OF SYSTEMS: A complete review of system including skin, ear, nose, and throat, cardiovascular system, respiratory system, gastrointestinal system, genitourinary system, hematology, oncology, neurology, allergy/immunology, endocrinology, and constitutional were all evaluated and were negative except for the above-said notes. PAST MEDICAL HISTORY: Significant for: 1. Lung cancer with metastasis to the brain receiving chemoradiation treatment. 2. Hypertension. 3. Chronic tobacco use in the past. PAST SURGICAL HISTORY: Significant for: 1. Craniotomy with tumor excision. 2. Laparoscopy to her tubal ligation. FAMILY HISTORY: Significant for mother and father both with cancer. SOCIAL HISTORY: The patient had history of smoking tobacco in the past but quit smoking at this time. No history of alcohol intake. ALLERGIES: The patient is noted to have allergies to Sudafed and dairy milk products. HOME MEDICATIONS: Include: 1. Norvasc 5 mg daily. 2. Zantac 1 tablet twice a day. 3. Zofran 8 mg as needed. 4. Multivitamin 1 tablet daily. 5. Magnesium oxide 1 tablet daily. 6. Loratadine 10 mg as needed. 7. Aspirin 81 mg daily. 8. Lisinopril 2.5 mg daily. 9. Toprol-XL 12.5 mg daily. 10.Potassium chloride 20 mEq daily. PHYSICAL EXAMINATION: Vital Signs: Temperature of 97.3, pulse of 70, blood pressure of 72/22, respiratory rate of 18, saturating at 100% on room air. General Appearance: The patient is well oriented to time, place, and person. Follows commands spontaneously. Cardiovascular System: S1, S2 heard with normal intensity. No gallops. Respiratory System: Clear to auscultation bilaterally. No wheeze. No crepitations. Abdomen: Soft. Bowel sounds positive. Nontender. No rigidity. Extremities: No edema in bilateral lower extremities. Neurologic: No gross focal neurological deficits. LABORATORY DATA: 1. WBC 7.9, hemoglobin 9.5, hematocrit 29.2, platelet count 170. 2. PT 10.7, INR 1.1. 3. Sodium 137, potassium 3.9, chloride 100, bicarb 22, BUN 47, creatinine 2.8, glucose 246, lactic acid 2.1, calcium 9.8, AST 23, ALT 12, alkaline phosphatase 53, troponin 0.04. 4. Urinalysis negative for nitrites, negative for leukocytes. IMAGING: Chest x-ray, no evidence of acute infiltrates. ASSESSMENT: 1. Severe dehydration. 2. Hypotensive episodes. 3. Acute renal failure. 4. Elevated troponin. 5. Chronic congestive heart failure with systolic dysfunction. 6. Hypertension with hypotensive episode. PLAN: 1. Severe dehydration. The patient presents with increasing weakness, tiredness. She has been having loose watery stools in the last few days leading to severe dehydration. The patient is currently hypotensive. The patient will be admitted to the hospital. We will have her on IV fluids. Be cautious regarding IV hydration as the patient has decreased ejection fraction from her previous echocardiogram. We will closely follow the patient. 2. Acute renal failure. This is mainly from hypotensive episode. Avoid any antihypertensive medication. She is noted to be on Norvasc and lisinopril and beta-allison. We will hold the antihypertensive medications until we normalize the blood pressure and restart them when she is more stable. The patient recently had an echocardiogram, official report is still pending at the time of this dictation. 3. Chronic congestive heart failure. The patient's recent echocardiogram showed decreased ejection fraction of 25%. She will benefit from BRANDON inhibitor and beta-blockers, but secondary to hypotensive episode, we will need to hold those medications for now and resume them when she is more stable. 4. Elevated troponin. The patient recently had a coronary angiogram which did not show any obstructive disease, so less likely we are dealing with any coronary artery disease at this time. This could be resulting from the nonischemic cardiomyopathy. 5. DVT prophylaxis. We will have her on heparin 5000 subcu q.12 hourly for DVT prophylaxis. 6. Discussed with ER physician regarding the plan of care. Discussed with the patient and family members regarding the plan of care. Reviewed the labs and medications. Reviewed the old charts. 7. Code status. The patient wants to be full code. [facility] /[id number]
[2017-07-12] MEDS: Heparin Sodium 5,000 Units/ML Vial SUBCUT SCH ×3 (06:16→21:37)
[2017-07-12] MEDS: Aspirin 81 MG Tab.Chew PO SCH (08:12)
[2017-07-12] MEDS: Multivitamins,Therapeutic Tab PO SCH (08:13)
[2017-07-12] MEDS: Famotidine 20 MG Tab PO SCH (08:13)
[2017-07-12] MEDS: Calcium Carbonate/Vitamin D3 1250 MG-200 Unit Tab PO SCH ×2 (10:40→21:36)
[2017-07-12] MEDS ORDERED: Furosemide 20 MG/2 ML VIAL IVPUSH ONE (11:18)
--- NOTE | 2017-07-12 12:05 | PN ---
DATE: 07/12/2017 SUBJECTIVE: Mrs. Yoni Kimball is a 77-year-old female with a medical history significant for tobacco use in the past, quit smoking since October of this year. Recently diagnosed with stage 4 small cell lung cancer involving the left upper lobe mediastinum and the brain, received a chemoradiation treatment. 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 Got admitted to the hospital with complaints of increasing weakness, tiredness, and dizziness and was noted to have severe hypotension. Her blood pressure was down to 70 systolic on this admission, requiring IV fluids. For the last 24 hours, she was continued on IV fluids. This morning, her labs were abnormal with hemoglobin dropping down to 7.3. The patient's symptoms improved after receiving IV fluids. She denies any chest pain. No shortness of breath. No abdominal pain. No nausea. No vomiting. No diarrhea. REVIEW OF SYSTEMS: Cardiovascular, respiratory, gastrointestinal, neurology, and constitutional were all evaluated. PHYSICAL EXAMINATION: Vital Signs: Temperature of 97.9, pulse of 78, blood pressure 100/60, respiratory rate of 20, and saturating at 99% on room air. General Appearance: The patient is well oriented to time, place, and person. Follows commands spontaneously. Cardiovascular System: S1, S2 heard with normal intensity. No gallops. Respiratory System: Clear to auscultation bilaterally. No wheeze. No crepitations. Abdomen: Soft. Bowel sounds positive. Nontender. No rigidity. Extremities: No edema bilateral lower extremities. Neurology: No gross focal neurological deficits. MEDICATIONS: Reviewed. Continue with: 1. Tylenol 650 every 4 hours as needed for pain. 2. Aspirin 81 mg daily. 3. Pepcid 20 mg daily. 4. Heparin 5000 subcutaneous q.8 hourly for DVT prophylaxis. 5. Magnesium oxide 500 mg daily. 6. Multivitamin 1 tablet daily. 7. Zofran as needed. LABORATORY DATA: Reviewed. WBC 4.6, hemoglobin 7.3, hematocrit 22, and platelet count 106. Sodium 141, potassium 4, chloride 112, bicarb 21, BUN 33, creatinine 1.3, glucose 79, phosphorus 4.4, magnesium 1.7. ASSESSMENT: 1. Severe hypotensive episode. 2. Severe dehydration. 3. Acute renal failure, improving. 4. Hypomagnesemia. 5. Severe anemia, possibly cancer related. 6. Stage 4 small cell lung cancer with distant metastasis to the brain requiring chemoradiation treatments. 7. Chronic congestive heart failure secondary to systolic dysfunction with ejection fraction of 25%. PLAN: 1. Severe dehydration. The patient was admitted with severe dehydration requiring IV fluids. As her blood pressure improved, we will discontinue the IV fluids given her underlying chronic congestive heart failure. 2. Anemia. The patient's hemoglobin dropped down to 7.3, this could be resulting from hemodilution also, but given her cancer, she could have symptomatic anemia at this time. The patient did receive blood transfusions in the past. She will receive at least 1 unit of packed red blood cells on this admission. Informed consent was obtained after explaining the risks, benefits, complications of blood transfusion. 3. Acute renal failure, much improved. Her creatinine has improved from 2.8 to 1.3. We will recheck a BMP in a.m. 4. Hypomagnesium. We will replace with oral magnesium and recheck magnesium in a.m. 5. DVT prophylaxis. Continue with heparin for DVT prophylaxis. 6. Hypotension. The patient was noted to be severely hypotensive. This could be also resulting from her medications. She was noted to be on lisinopril and metoprolol prior to getting admitted to the hospital. We will discontinue the lisinopril and metoprolol-XL. The patient says that her Norvasc was discontinued. We will continue to hold her antihypertensive medications and resume them when she is more stable. 7. The patient has a Life vest on. We will continue with the Life vest for now. The patient had a repeat 2D echocardiogram 2 days back and still awaiting on the official report. 8. Discussed with family members at bedside. [facility] /[id number]
[2017-07-13] MEDS ORDERED: Furosemide 20 MG/2 ML VIAL IVPUSH PRN (06:00)
[2017-07-13] MEDS: Heparin Sodium 5,000 Units/ML Vial SUBCUT SCH ×3 (06:00→22:37)
[2017-07-13 07:07] LABS: CHLORIDE,CL 112 mmol/L (101-111); SODIUM,NA 142 mmol/L (135-145)
[2017-07-13] MEDS: Aspirin 81 MG Tab.Chew PO SCH (07:38)
[2017-07-13] MEDS: Calcium Carbonate/Vitamin D3 1250 MG-200 Unit Tab PO SCH ×2 (09:16→22:38)
[2017-07-13] MEDS: Famotidine 20 MG Tab PO SCH (09:16)
[2017-07-13] MEDS: Multivitamins,Therapeutic Tab PO SCH (09:17)
[2017-07-13] MEDS ORDERED: Furosemide 20 MG/2 ML VIAL IVPUSH ONE (10:49)
[2017-07-13] MEDS ORDERED: Polyethylene Glycol 3350 Powder 17 GM Packet PO PRN (10:50)
[2017-07-13] MEDS ORDERED: Magnesium Hydroxide 400 MG/5 ML Susp 30 ML Cup PO PRN (10:50)
[2017-07-13] MEDS: Sodium Chloride 0.9% 10 ML Syringe FLUSH PRN ×2 (10:51→14:34)
[2017-07-13] MEDS: Metoprolol Tartrate 25 MG Tab PO SCH ×2 (11:24→22:38)
--- NOTE | 2017-07-13 11:47 | PN ---
DATE: 07/13/2017 SUBJECTIVE: Mrs. 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 Got admitted this time to the hospital with complaints of increasing weakness, tiredness, and dizziness and noted to have severe hypotensive episode with her blood pressure down to 70 systolic and also noted to have severe anemia. For the last 24 hours, the patient could not get the blood transfusion yesterday as requested for leukodepleted and irradiated blood, so Blood Bank has to wait for getting the blood from outside. This morning, she is able to receive the blood transfusion. She denies any chest pain. No shortness of breath. No abdominal pain. No nausea. No vomiting. No diarrhea. REVIEW OF SYSTEMS: Cardiovascular, respiratory, gastrointestinal, neurology, constitutional were all evaluated. PHYSICAL EXAMINATION: Vital Signs: Temperature of 98.6, pulse of 86, blood pressure 108/68, respiratory rate of 20, and saturating at 100% on room air. General Appearance: The patient is well oriented to time, place, and person. Follows commands spontaneously. Cardiovascular System: S1 and S2 heard with normal intensity. No gallops. Respiratory System: Clear to auscultation bilaterally. No wheeze. No crepitations. Abdomen: Soft. Bowel sounds positive. Nontender. No rigidity. Extremities: No edema in bilateral lower extremities. Neurology: No gross focal neurological deficits. MEDICATIONS: Reviewed. Continue with: 1. Aspirin 81 mg daily. 2. Lasix 20 mg IV x1 dose after receiving the blood transfusion. 3. Heparin 5000 subcutaneous q.8 hourly. 4. Milk of magnesium as needed. 5. Added metoprolol 12.5 mg twice a day. LABORATORY DATA: Hemoglobin 7, hematocrit 21.9, WBC 4.1, and platelet count 112. Sodium 142, potassium 3.7, chloride 112, bicarb 22, BUN 14, creatinine 0.7. ASSESSMENT: 1. Pancytopenia, mostly from cancer. 2. Symptomatic anemia. 3. Acute renal failure, resolved. 4. Severe hypotension. 5. Lung cancer with metastasis to the brain, received chemoradiation treatments. 6. Acute renal failure from hypotension episode, resolved. 7. Hypomagnesemia. 8. Chronic congestive heart failure secondary to systolic dysfunction with ejection fraction of 25%. PLAN: 1. Pancytopenia: The patient is noted to have neutropenia, anemia, and thrombocytopenia; this could be resulting from her cancer and chemotherapy related. Her hemoglobin is down to 7. She is receiving 1 unit of packed red blood cells today, which will be leukodepleted and irradiated given her chronic history of blood transfusion and underlying cancer. We will recheck hemoglobin in a.m. 2. Acute renal failure, resolved: The patient was noted to have elevated creatinine up to 2 at the time of admission, which seems to be improved and back to baseline at this time. This is mainly from her hypotensive episodes. 3. Hypotension: This could be resulting from dehydration as she had some loose stools prior to coming to the hospital and also from her being on antihypertensive medication. We had to hold her antihypertensive medication. Her blood pressure seems to be improved today, so we will add a low-dose metoprolol at 12.5 mg twice a day as her heart rate seems to be increased to 80s at this time. 4. Chronic congestive heart failure, remains stable: A recent echocardiogram showed an ejection fraction of 25%. Try to avoid any aggressive hydration. The patient will receive 20 mg of IV Lasix post blood transfusion to avoid any volume overload status. 5. Lung cancer: The patient has stage IV small cell lung cancer with distant metastasis to the brain, requiring chemoradiation treatment. She will follow with Oncology as an outpatient. 6. DVT prophylaxis: Continue with heparin for DVT prophylaxis. 7. Possible discharge in a.m. if she remains hemodynamically stable. [facility] /[id number]
--- NOTE | 2017-07-13 11:53 | EKG ---
07/11/2017 - MELVI GORDON - FINDINGS: A 12-lead EKG shows normal sinus rhythm with sinus bradycardia with heart rate of 58. Left bundle branch block noted. Premature ventricular complexes noted. No significant ST elevation or ST depression noted at this time. Nonspecific ST-T wave changes noted on lead II. [facility] /[id number]
[2017-07-14] MEDS: Heparin Sodium 5,000 Units/ML Vial SUBCUT SCH (06:39)
[2017-07-14] MEDS: Famotidine 20 MG Tab PO SCH (09:21)
[2017-07-14] MEDS: Metoprolol Tartrate 25 MG Tab PO SCH (09:22)
[2017-07-14] MEDS: Multivitamins,Therapeutic Tab PO SCH (09:22)
[2017-07-14] MEDS: Aspirin 81 MG Tab.Chew PO SCH (09:23)
[2017-07-14] MEDS: Calcium Carbonate/Vitamin D3 1250 MG-200 Unit Tab PO SCH (09:23)
[2017-07-14] MEDS ORDERED: Metoprolol Tartrate 25 MG Tab PO ONE (11:04)
[2017-07-14 12:02] VITALS: BP 117/77
[2017-07-14] MEDS ORDERED: Metoprolol Tartrate 25 MG Tab PO SCH (21:00)
--- NOTE | 2017-07-15 10:19 | DISCH ---
ADMITTING DIAGNOSES: 1. Acute renal failure. 2. Severe dehydration. 3. Hypotensive episodes. 4. Elevated troponin. DISCHARGE DIAGNOSES: 1. Severe dehydration, resolved with IV fluids. 2. Hypotensive episode as a complication of polypharmacy, improved. 3. Acute renal failure, resolved. 4. Elevated troponin, stable. 5. Severe anemia, requiring blood transfusion. HISTORY OF PRESENTING ILLNESS: Mrs. Nae Vallejo is a 77-year-old female with medical history significant for stage IV small cell lung cancer involving the left upper lobe mediastinum, and brain, received chemoradiation treatment. Also, diagnosis with chronic congestive heart failure with ejection fraction of 25%. Her recent coronary angiogram, which did not show any evidence of obstructive coronary artery disease. Got admitted to the hospital with complaints of increasing weakness and tiredness. The patient was noted to have severe hypotensive episode with blood pressure dropping down to 70 systolic. The patient was also noted to be on Bumex and metoprolol-XL and also lisinopril, which could potentially lead to hypotensive episode. She was also noted to be dehydrated. She was admitted to the hospital. She was treated with IV fluids. She was noted to have acute renal failure with creatinine up to 2.8 on this admission, which got resolved and improved to 0.7 at the time of discharge. She was also noted to have severe anemia with hemoglobin dropping down to 7 on this admission. She got improved after blood transfusion, and her hemoglobin improved to 9.1. She remained hemodynamically stable on this admission. We had to stop her lisinopril secondary to acute renal failure. She will resume her Toprol-XL. She is encouraged to monitor her blood pressure closely at home, and she has upcoming Cardiology appointment. She is able to ambulate well without any difficulty. Her weakness and tiredness have resolved. Her chronic congestive heart failure, remains stable on this admission. She is discharged home in stable condition. She is advised to follow with her primary care physician next 1 week of time, and to follow with Cardiology as scheduled. DISCHARGE MEDICATIONS: Include: 1. Tylenol 325 mg every 6 hours as needed for pain. 2. Aspirin 81 mg daily. 3. Calcium with vitamin D one tablet twice a day. 4. Lasix 20 mg daily. 5. Loratadine 10 mg daily. 6. Magnesium oxide 400 mg daily. 7. Toprol-XL 12.5 mg daily. 8. Multivitamin 1 tablet daily. 9. Ondansetron 8 mg every 8 hours as needed for nausea. 10.Compazine 5 mg every 6 hours as needed. 11.Zantac 150 mg twice a day. The patient is advised to stop taking the Bumex and the lisinopril secondary to acute renal failure, and severe dehydration. The patient is explained about the changes in her medications. PHYSICAL EXAMINATION: Vital Signs: On the day of discharge; temperature of 97.8, pulse of 85, blood pressure of 117/77, pulse of 78, respiratory rate of 20, saturating 97% on room air. General appearance: The patient is well oriented to time, place, and person. Follows commands spontaneously. Cardiovascular System: S1, S2 heard with normal intensity. No gallops. Respiratory System: Clear to auscultation bilaterally. No wheeze. No crepitations. Abdomen: Soft. Bowel sounds positive. Nontender. No rigidity. Extremities: No edema bilateral lower extremities. Neurology: No gross focal neurological deficits. CONDITION ON ADMISSION: Poor. CONDITION ON DISCHARGE: Stable. DISPOSITION: Discharged to home. ACTIVITY: As tolerated. DIET: Cardiac healthy diet. FOLLOWUP: Followup with primary care physician next 1 week of time. Follow up with Cardiology Clinic as scheduled. Spent over 35 minutes of time in evaluating and treating this patient and coordination of cares. [facility] /[id number]
--- NOTE | 2017-07-15 12:18 | EKG ---
07/11/2017 - MELVI GORDON - A 12-lead EKG shows normal sinus rhythm with sinus bradycardia, multiple ventricular premature complex with left bundle branch block. No significant ST elevation or ST depression noted on this 12-lead EKG. Nonspecific ST-T wave changes noted on lead 2 and lead 3. [facility] /[id number]
== END 2017-07-14 14:00 | disposition home or self-care (01) | DRG 315 ==
LOC: DL.ED 19:05 → UNDOADMIN 20:57 → DL.MS 20:57
PROVIDERS: ADMIT Internal Medicine; ATTEND Internal Medicine
PROC: 30233N1 Transfusion of Nonautologous Red Blood Cells into Peripheral Vein, Percutaneous Approach (ICD-10-PCS; principal; 2017-07-11)
DX: K62.5 Hemorrhage of anus and rectum (principal); I95.9 Hypotension, unspecified; N17.9 Acute kidney failure, unspecified; I10 Essential (primary) hypertension; I50.22 Chronic systolic (congestive) heart failure; K21.9 Gastro-esophageal reflux disease without esophagitis; D64.9 Anemia, unspecified; C34.92 Malignant neoplasm of unspecified part of left bronchus or lung; C79.31 Secondary malignant neoplasm of brain; D61.818 Other pancytopenia; E86.0 Dehydration; R74.8 Abnormal levels of other serum enzymes; I11.0 Hypertensive heart disease with heart failure; Z87.891 Personal history of nicotine dependence; Z91.011 Allergy to milk products; Z88.8 Allergy status to other drugs, medicaments and biological substances; Z79.82 Long term (current) use of aspirin; Z79.899 Other long term (current) drug therapy; E83.42 Hypomagnesemia
CPT/HCPCS: 36415; 71010; 80053; 81001; 82272; 83540; 83550; 83605; 84484; 85025; 85045; 85610; 85730; 86850; 86900; 86901; 86920; 86922; 86945; 87040 ×2; 87086; 96360; 96361; 99285; J7030; J7040 ×2; 36430; 80048; 83735; 84100; 85018; 85027; A9270-GY; J1644; J1940; J3475; J7050; P9016

== ENCOUNTER 2017-08-27 08:10 | Emergency (ER) | payer MEDICARE, OTHER ==
[2017-08-27 08:24] VITALS: BP 109/76
[2017-08-27] MEDS ORDERED: Sodium Chloride 0.9% 1,000 ML IV ONE (08:26)
[2017-08-27] MEDS ORDERED: Ondansetron 4 MG/2 ML SDV IV ONE (08:27)
--- NOTE | 2017-08-27 08:37 | EDM.PDOC ---
ED HPI GENERAL MEDICAL PROBLEM - General Chief Complaint: Gastrointestinal Problem Stated Complaint: [id number] FELL WEAK COMPLICATIONS FROM RADIATION Time Seen by Provider: 08/27/17 08:25 Source of Information: Reports: Patient History Limitations: Reports: No Limitations - History of Present Illness INITIAL COMMENTS - FREE TEXT/NARRATIVE: This 77 yo female patient was brought to the ED by her son due to increased weakness, nausea and possible dehydration. The patient reports she has been at her normal level of function up to this morning. This morning, the patient reports she was getting up, but was too weak to to stand up and fell to the ground. The patient reports she fell very slowly and has no injuries from the fall. The patient reports no loss of consciousness before, during or after the fall. The patient was admitted for similar symptoms about 3 weeks ago. The patient has a history of Stage 4 small cell lung cancer with brain metastesis, CHF, hypertension, dehydration and a previous episode of acute renal failure due to dehydration. The patient was scheduled to have an appointment with oncology today with a repeat PET scan today at 1100 and an MRI scheduled at 1400. The patient normally sees Dr. Evans, but has an appointment with Dr. Carter tomorrow (due to the fact that Dr. Evans is out of the office). Onset: Today Duration: Constant Location: Reports: Generalized (weakness) Quality: Reports: Other Severity: Moderate Improves with: Reports: None Worsens with: Reports: None Associated Symptoms: Reports: Nausea/Vomiting, Weakness - Related Data Allergies Allergy/AdvReac Type Severity Reaction Status Date / Time Dairy Products Allergy Other Verified 08/27/17 08:28 pseudoephedrine Allergy Other Verified 08/27/17 08:28 Home Meds: Home Meds Calcium Citrate/Vitamin D3 [Calcium Citrate + D] 1 tab PO BID 11/29/16 [History] Multivitamin [Multivitamins] 1 tab PO DAILY 11/29/16 [History] Ondansetron [Zofran Odt] 8 mg PO Q8HR PRN 04/26/17 [History] Metoprolol Succinate [Toprol XL] 12.5 mg PO DAILY 07/11/17 [History] Acetaminophen 325 mg PO Q6HR PRN 07/12/17 [History] Loratadine 10 mg PO DAILY 07/12/17 [History] Magnesium Oxide [Magnesium] 400 mg PO DAILY PRN 07/12/17 [History] Prochlorperazine [Compazine] 5 mg PO Q6H 07/12/17 [History] Ranitidine [Zantac] 150 mg PO BID 07/12/17 [History] Aspirin 81 mg PO BRK tab.chew 07/14/17 [Rx] Furosemide [Lasix] 20 mg PO DAILY #30 tablet 07/14/17 [Rx] Potassium Chloride [Klor-Con 10] 10 meq PO DAILY #30 tab.er 07/14/17 [Rx] Past Medical History HEENT History: Reports: Cataract Cardiovascular History: Reports: Cardiomyopathy, Hypertension, SOB on Exertion, Other (See Below) Other Cardiovascular History: life vest Respiratory History: Reports: SOB, Other (See Below) Other Respiratory History: 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 Gastrointestinal History: Reports: GERD, Hemorrhoids, Other (See Below) Other Gastrointestinal History: Lactose intolerance Genitourinary History: Reports: None, Urinary Incontinence HOSPITALITY COORDINATOR History: Reports: Other (See Below) Other OB/BYN History: Tubal ligation at age 52 3 NVD Musculoskeletal History: Reports: Arthritis Other Musculoskeletal History: arthritis in fingers Neurological History: Reports: None Psychiatric History: Reports: None Endocrine/Metabolic History: Reports: None Hematologic History: Reports: Anemia, Blood Transfusion(s), Iron Deficiency Immunologic History: Reports: None Oncologic (Cancer) History: Reports: Brain, Lung, Other (See Below) Other Oncologic History: radiation finish on 08-09-17 Dermatologic History: Reports: None - Infectious Disease History Infectious Disease History: Reports: Chicken Pox, Measles, Mumps - Past Surgical History Cardiovascular Surgical History: Reports: None Respiratory Surgical History: Reports: None Female Surgical History: Reports: D&C Musculoskeletal Surgical History: Reports: None Social & Family History - Family History Family Medical History: Noncontributory HEENT: Reports: Glaucoma Cardiac: Reports: Heart Failure Endocrine/Metabolic: Reports: Diabetes, type II Immunologic: Reports: None Oncologic: Reports: Breast, Uterine - Tobacco Use Smoking Status *Q: Former Smoker Years of Tobacco use: 55 Packs/Tins Daily: 0.5 Used Tobacco, but Quit: Yes Month Tobacco Last Used: oct 2016 Second Hand Smoke Exposure: No - Caffeine Use Caffeine Use: Reports: None - Recreational Drug Use Recreational Drug Use: No ED ROS GENERAL - Review of Systems Review Of Systems: ROS reveals no pertinent complaints other than HPI. ED EXAM, GENERAL - Physical Exam Exam: See Below Exam Limited By: No Limitations General Appearance: Alert, WD/WN, Moderate Distress Eye Exam: Bilateral Eye: EOMI, Normal Inspection, PERRL Ears: Normal External Exam, Normal Canal, Hearing Grossly Normal, Normal TMs Nose: Normal Inspection, Normal Mucosa, No Blood Throat/Mouth: Normal Inspection, Normal Lips, Normal Teeth, Normal Gums, Normal Oropharynx, Normal Voice, No Airway Compromise, Other (dry) Head: Atraumatic, Normocephalic Neck: Normal Inspection, Supple, Non-Tender, Full Range of Motion Respiratory/Chest: No Respiratory Distress, Lungs Clear, Normal Breath Sounds, No Accessory Muscle Use, Chest Non-Tender Cardiovascular: Normal Peripheral Pulses, Regular Rate, Rhythm, No Edema, No Gallop, No JVD, No Murmur, No Rub GI/Abdominal: Normal Bowel Sounds, Soft, Non-Tender, No Organomegaly, No Distention, No Abnormal Bruit, No Mass (Female) Exam: Deferred Rectal (Female) Exam: Deferred Back Exam: Normal Inspection, Full Range of Motion, NT Extremities: Normal Inspection, Normal Range of Motion, Non-Tender, Normal Capillary Refill, No Pedal Edema Neurological: Alert, Oriented, CN II-XII Intact, Normal Cognition, Normal Gait, Normal Reflexes, No Motor/Sensory Deficits Psychiatric: Normal Affect, Normal Mood Skin Exam: Warm, Dry, Intact, Normal Color, No Rash Lymphatic: No Adenopathy Course - Vital Signs Last Recorded V/S: Last Vital Signs Temp 36.6 C 08/27/17 08:21 Pulse 99 08/27/17 08:31 Resp 20 08/27/17 08:31 BP 109/76 08/27/17 08:21 Pulse Ox 93 L 08/27/17 08:31 Orthostatic Blood Pressure [ 103/77 Standing] Orthostatic Blood Pressure [ 104/69 Sitting] Orthostatic Blood Pressure [ 109/72 Supine] - Orders/Labs/Meds Orders: Active Orders 24 hr Category Date Time Status EKG Documentation Completion [RC] URGENT Care 08/27/17 08:23 Active Sodium Chloride 0.9% [Normal Saline] 1,000 ml Med 08/27/17 08:26 Active IV .BOLUS Medication Orders Sodium Chloride (Normal Saline) 1,000 mls @ 125 mls/hr IV .BOLUS ONE Stop: 08/27/17 16:25 Last Admin: 08/27/17 08:35 Dose: 125 mls/hr Labs: Laboratory Tests 08/27/17 08/27/17 08/27/17 Range/Units 08:50 08:50 11:12 WBC 4.5 L (5.0-10.0) 10^3/uL RBC 2.84 L (4.2-5.4) 10^6/uL Hgb 8.8 L (12.0-16.0) g/dL Hct 27.3 L (37.0-47.0) % MCV 96.1 (80-100) fL MCH 31.0 (27.0-34.0) pg MCHC 32.2 L (33.0-35.0) g/dL Plt Count 221 D (150-450) 10^3/uL Neut % (Auto) 74.4 (42.2-75.2) % Lymph % (Auto) 13.6 L (20.5-50.1) % [place] % (Auto) 11.4 H (2-8) % Eos % (Auto) 0.4 L (1.0-3.0) % Baso % (Auto) 0.2 (0.0-1.0) % Sodium 130 L D (135-145) mmol/L Potassium 3.6 (3.6-5.0) mmol/L Chloride 90 L D (101-111) mmol/L Carbon Dioxide 24.0 (21.0-31.0) mmol/L Anion Gap 19.6 BUN 14 (7-18) mg/dL Creatinine 1.2 (0.6-1.3) mg/dL Est Cr Clr Drug Dosing 24.91 mL/min Estimated GFR (MDRD) 44 BUN/Creatinine Ratio 11.66 Glucose 109 H (74-105) mg/dL Calcium 9.2 (8.4-10.2) mg/dl Total Bilirubin 0.3 (0.2-1.0) mg/dL AST 19 (10-42) IU/L ALT 9 L (10-60) IU/L Alkaline Phosphatase 48 (42-121) IU/L Troponin I 0.05 H* (0.00-0.02) ng/ml Total Protein 7.1 (6.7-8.2) g/dl Albumin 3.2 (3.2-5.5) g/dl Globulin 3.9 Albumin/Globulin Ratio 0.82 Urine Color Yellow (YELLOW) Urine Appearance Turbid (CLEAR) Urine pH 6.0 (5.0-9.0) Ur Specific [place] 1.015 (1.005-1.030) Urine Protein 30 H (NEGATIVE) Urine Glucose (UA) Negative (NEGATIVE) Urine Ketones Negative (NEGATIVE) Urine Occult Blood Moderate H (NEGATIVE) Urine Nitrite Negative (NEGATIVE) Urine Bilirubin Negative (NEGATIVE) Urine Urobilinogen 0.2 (0.2-1.0) mg/dL Ur Leukocyte Esterase Large H (NEGATIVE) Urine RBC 5-10 H /HPF Urine WBC Semi-packed H (0-5/HPF) /HPF Ur Epithelial Cells Rare /HPF Urine Bacteria Many H (0-FEW/HPF) /HPF Urine Mucus Not seen /LPF Meds: Medications Generic Name Dose Route Start Last Admin Trade Name Freq PRN Reason Stop Dose Admin Sodium Chloride 1,000 mls @ 125 mls/hr 08/27/17 08:26 08/27/17 08:35 Normal Saline IV 08/27/17 16:25 125 mls/hr .BOLUS ONE Administration Discontinued Medications Generic Name Dose Route Start Last Admin Trade Name Freq PRN Reason Stop Dose Admin Ondansetron HCl 4 mg 08/27/17 08:27 08/27/17 08:37 Zofran IV 08/27/17 08:28 4 mg ONETIME ONE Administration Departure - Departure Time of Disposition: 11:28 Disposition: Home, Self-Care 01 Condition: Fair Clinical Impression: Mild dehydration UTI (urinary tract infection) Qualifiers: Urinary tract infection type: site unspecified Hematuria presence: with hematuria Qualified Code(s): N39.0 - Urinary tract infection, site not specified ; R31.9 - Hematuria, unspecified; R31.9 - Hematuria, unspecified - Discharge Information Instructions: Dehydration, Adult, [id number], Urinary Tract Infection, Adult , [id number] Forms: ED Department Discharge Care Plan Goals: The patient and family (son) were advised of the examination, EKG and lab results during the visit. The patient was given IV fluids while in the ED. The patient was discharged with a script for Macrobid (100 mg) to take 1 by mouth 2 times per day for 7 days. If the patient has any additional symptoms or further concerns, the patient should follow-up with her primary care facility or return to the emergency department. - My Orders Last 24 Hours: My Active Orders 08/27/17 08:23 EKG Documentation Completion [RC] URGENT 08/27/17 08:26 Sodium Chloride 0.9% [Normal Saline] 1,000 ml IV .BOLUS - Assessment/Plan Last 24 Hours: My Active Orders 08/27/17 08:23 EKG Documentation Completion [RC] URGENT 08/27/17 08:26 Sodium Chloride 0.9% [Normal Saline] 1,000 ml IV .BOLUS
--- NOTE | 2017-08-29 10:41 | EKG ---
08/27/2017 - MELVI GORDON - FINDINGS: I reviewed the EKG and agree with the machine's reading. [facility] /[id number]
== END 2017-08-27 11:43 | disposition home or self-care (01) ==
LOC: DL.ED 08:10
DX: E86.0 Dehydration (principal); N39.0 Urinary tract infection, site not specified; C34.92 Malignant neoplasm of unspecified part of left bronchus or lung; C79.31 Secondary malignant neoplasm of brain; R31.9 Hematuria, unspecified; I11.0 Hypertensive heart disease with heart failure; I50.9 Heart failure, unspecified; K21.9 Gastro-esophageal reflux disease without esophagitis; Z87.891 Personal history of nicotine dependence; Z79.82 Long term (current) use of aspirin; Z79.899 Other long term (current) drug therapy; Z88.8 Allergy status to other drugs, medicaments and biological substances; Z91.011 Allergy to milk products
CPT/HCPCS: 36415; 80053; 81001; 84484; 85025; 87086; 87088; 87186; 93005; 96365; 96366; 96375; 99284; J2405; J7030